=== PATIENT | female | born 1970 | race Caucasian/White ===

== ENCOUNTER 2018-08-18 00:38 | Emergency (ER) | payer BC, OTHER ==
[~2018-08-18] VITALS: Ht 167.6 cm; Wt 68.0 kg
== END 2018-08-18 01:47 | disposition home or self-care (01) ==
LOC: ED 00:38
PROC: 0HQ0XZZ Repair Scalp Skin, External Approach (ICD-10-PCS; principal; 2018-08-18)
DX: S01.01XA Laceration without foreign body of scalp, initial encounter (principal); F17.200 Nicotine dependence, unspecified, uncomplicated; Z23 Encounter for immunization; W01.0XXA Fall on same level from slipping, tripping and stumbling without subsequent striking against object, initial encounter
CPT/HCPCS: 12001; 90471; 90715; 99282-25

== ENCOUNTER 2019-06-14 08:02 | Day surgery (SDC) | payer BC ==
[~2019-06-14] VITALS: Ht 167.6 cm; Wt 81.7 kg
[~2019-06-14 08:02] MED LIST: LIPITOR10 MG PO
--- NOTE | 2019-06-14 09:55 | NUR ---
06/14/19 0955 Mishel Lombardo 0949: PT ARRIVES TO PACU FROM ENDO DROWSY WITH EYES CLOSED. PT ON 3L O2 VIA MASK, SATS GREATER THAN 94%. PT AROUSES TO VERBAL STIMULI, DENIES PAIN OR NAUSEA. PT ENCOURAGED TO PASS FLATUS.
--- NOTE | 2019-06-15 06:31 | OR ---
[facility] [address], [place] [address] Signed DATE OF OPERATION: 06/14/2019 SURGEON: Todd Christiansen MD PREOPERATIVE DIAGNOSES: 1. Screening. 2. External hemorrhoids. 3. Intermittent rectal bleeding. POSTOPERATIVE DIAGNOSES: 1. Minimal to moderate sigmoid diverticulosis. 2. Minimal external hemorrhoids. 3. Three perianal comedones. PROCEDURE PERFORMED: Colonoscopy without biopsy. ESTIMATED BLOOD LOSS: None. INDICATIONS: Maria Elena is a 49-year-old female, asked to see me for her initial screening colonoscopy. She describes external hemorrhoids. She has intermittent rectal bleeding. Intermittent rectal bleeding. She has no family history of colon cancer or polyps. In the office, I gave her a pamphlet on colonoscopy and we looked at that together along with the risks including, but not limited to gas bloating, crampy abdominal pain, bleeding, perforation requiring surgery, and missed diagnosis. We also discussed the need for IV conscious sedation. She had expressed understanding and wished to proceed. PROCEDURE NOTE: Maria Elena was taken into our endoscopy suite and placed in a left lateral decubitus position. She was given a total of 9 mg of Versed and 175 mcg of fentanyl to cover the case. A digital rectal exam was performed and she does have small circumferential external hemorrhoids. She had 3 perianal comedones. She had good sphincter tone. No masses. The adult colonoscope was introduced and advanced all around into the cecum under direct visualization of camera. It took some extra sedation abdominal compression in order to advance the scope into the cecum itself. Her prep was good. We could easily see the appendiceal orifice and the ileocecal valve. The scope was slowly withdrawn. We took pictures throughout for photodocumentation. She has minimal to moderate sigmoid diverticulosis. They are moderate in size minimal to moderate in number, and scattered Electronically Signed By: TODD CHRISTIANSEN MD 06/15/19 0631 PATIENT NAME: MARIA ELENA DIALLO OPERATIVE REPORT DATE OF : 66 REPORT #: [id number] PHYSICIAN: TODD CHRISTIANSEN MD PCP: TREASURE ROSE PA-C REPORT IS CONFIDENTIAL AND NOT TO BE RELEASED WITHOUT AUTHORIZATION [facility] [address], [place] [address] Signed about. The rectum was unremarkable. Upon retroflexion of scope, really not much in the way of any internal hemorrhoids. After this, the gas was suctioned out and the colonoscope removed. Maria Elena tolerated the procedure quite well. RECOMMENDATIONS: Maria Elena is going to return in 10 years for repeat colonoscopy. Todd Christiansen MD ALB/ZAINABL /[id number] cc: MD Treasure Greenberg PA-C Copies: TODD CHRISTIANSEN MD, CHLOE K PA-C ~ Electronically Signed By: TODD CHIRSTIANSEN MD 06/15/19 0631 PATIENT NAME: MARIA ELENA DIALLO OPERATIVE REPORT DATE OF : 66 REPORT #: [id number] PHYSICIAN: TODD CHRISTIANSEN MD PCP: TREASURE ROSE PA-C REPORT IS CONFIDENTIAL AND NOT TO BE RELEASED WITHOUT AUTHORIZATION
== END 2019-06-14 10:55 | disposition home or self-care (01) ==
LOC: OPS 08:02 → DS 08:02 → OPS 09:00
PROVIDERS: Colon & Rectal Surgery
PROC: 0DJD8ZZ Inspection of Lower Intestinal Tract, Via Natural or Artificial Opening Endoscopic (ICD-10-PCS; principal; 2019-06-14 09:00)
DX: Z12.11 Encounter for screening for malignant neoplasm of colon (principal); K64.4 Residual hemorrhoidal skin tags; K57.30 Diverticulosis of large intestine without perforation or abscess without bleeding; L70.0 Acne vulgaris; E78.5 Hyperlipidemia, unspecified; E66.9 Obesity, unspecified; F17.210 Nicotine dependence, cigarettes, uncomplicated; Z68.29 Body mass index [BMI] 29.0-29.9, adult; Z79.899 Other long term (current) drug therapy
CPT/HCPCS: 99153; G0500; J2250; J3010; J7121

== ENCOUNTER 2021-03-05 09:36 | Emergency (ER) | payer BC ==
[~2021-03-05] VITALS: Ht 172.7 cm; Wt 78.1 kg
[~2021-03-05 09:36] MED LIST changes: +ADULT LOW DOSE81 MG PO; +FENOFIBRATE160 MG PO; +LIPITOR20 MG PO; +TRAZODONE HCL50 MG PO
[2021-03-05] MEDS ORDERED: HYDROCODON-ACE1 EA10 PO (11:24)
[2021-03-05] MEDS ORDERED: FLOMAX0.4 MG PO (11:24)
[2021-03-05] MEDS ORDERED: ONDANSETRON ODT4 MG PO (11:24)
[2021-03-05] MEDS ORDERED: CIPRO500 MG PO (12:20)
== END 2021-03-05 13:06 | disposition home or self-care (01) ==
LOC: ED 09:36
DX: N13.2 Hydronephrosis with renal and ureteral calculous obstruction (principal); N39.0 Urinary tract infection, site not specified; F17.200 Nicotine dependence, unspecified, uncomplicated; Z79.82 Long term (current) use of aspirin; Z79.899 Other long term (current) drug therapy
CPT/HCPCS: 74176; 80048; 81001; 85025; 87088; 96374; 96375; 99284-25; J1885; J2405

== ENCOUNTER 2024-06-18 08:31 | Emergency (ER) | payer BC ==
[~2024-06-18] VITALS: Ht 172.7 cm; Wt 86.4 kg
[~2024-06-18 08:31] MED LIST changes: +CIPRO500 MG PO; +FLOMAX0.4 MG PO; +HYDROCODON-ACE1 EA10 PO; +ONDANSETRON ODT4 MG PO
[2024-06-18] MEDS ORDERED: CIPRO500 MG PO (08:45)
[2024-06-18] MEDS ORDERED: SODIUM CHLORIDE 0.9% 1,000 ML IV ONE (09:00)
[2024-06-18] MEDS ORDERED: KETOROLAC TROMETHAMINE 30 MG/ML VIAL IV ONE (09:00)
[2024-06-18] MEDS ORDERED: ondansetron HCL 4 MG/2 ML VIAL IV ONE (09:00)
[2024-06-18 09:03] LABS: BASOPHILS 0.6 % (0-2); HEMATOCRIT 41.2 % (35.0-50.0); HEMOGLOBIN 13.6 g/dL (12.0-18.0); LYMPHOCYTES 15.4 % (24-44); MCH 27.8 (27-36); MCHC 33.1 g/dl (30-36); MONOCYTES 7.3 % (0-12); NEUTROPHILS 74.7 % (39-80); PLATELET COUNT 492 K/uL (140-440); RDW 13.8 (10.5-15.0)
[2024-06-18 09:20] LABS: ALBUMIN 3.3 g/dL (3.4-5.0); ALBUMIN/GLOBULIN RATIO 0.79 (1.1-2.4); ANION GAP 14.2 (7-21); BILIRUBIN, TOTAL 0.3 ng/dL (0.2-1.0); BUN/CREATININE RATIO 16.27 (6.0-28.6); CALCIUM 9.4 mg/dL (8.5-10.1); CREATININE, SERUM 0.86 mg/dL (0.55-1.02); POTASSIUM 4.2 mmol/L (3.5-5.1); PROTEIN, TOTAL 7.5 g/dL (6.4-8.2)
[2024-06-18 10:10] LABS: BILIRUBIN, URINE NEGATIVE (negative); BLOOD/HGB, URINE NEGATIVE (Negative); KETONE, URINE NEGATIVE (Negative); LEUK ESTERASE, URINE NEGATIVE (negative); NITRITE, URINE NEGATIVE (negative); PH, URINE 6.5 (5-7)
[2024-06-18 10:29] VITALS: BP 117/62
[2024-06-18] MEDS ORDERED: AMOX TR-K CLV1 EAC1 PO (10:29)
[2024-06-18] MEDS ORDERED: KETOROLAC TROME10 MG PO (10:29)
[2024-06-18] MEDS ORDERED: AMOXICILLIN/CLAVULANATE K 875 MG TAB PO ONE (10:30)
== END 2024-06-18 10:39 | disposition home or self-care (01) ==
LOC: ED 08:31
PROVIDERS: Emergency Medicine
DX: K57.32 Diverticulitis of large intestine without perforation or abscess without bleeding (principal); E78.00 Pure hypercholesterolemia, unspecified; F17.200 Nicotine dependence, unspecified, uncomplicated; Z79.82 Long term (current) use of aspirin; Z79.899 Other long term (current) drug therapy; Z79.2 Long term (current) use of antibiotics
CPT/HCPCS: 36415; 74177; 80053; 81003; 83690; 85025; 96375; 99284-25; J1885; J2405; J7030; Q9967